=== PATIENT | male | born 1985 | race Caucasian/White ===

== ENCOUNTER 2016-10-18 21:22 | Emergency (ER) | payer MEDICAID | END 2016-10-18 23:15 | disposition home or self-care (01) | LOC: D.ER 21:22 | DX: K08.89 Other specified disorders of teeth and supporting structures (principal); K05.10 Chronic gingivitis, plaque induced; S02.5XXA Fracture of tooth (traumatic), initial encounter for closed fracture; X58.XXXA Exposure to other specified factors, initial encounter; Y93.9 Activity, unspecified; R68.84 Jaw pain ==

== ENCOUNTER 2018-07-05 09:49 | Emergency (ER) | payer OTHER ==
[~2018-07-05] VITALS: Ht 165.1 cm; Wt 54.5 kg
[2018-07-05 09:52] VITALS: Ht 165.1 cm; Wt 54.5 kg
[2018-07-05 10:33] LABS: BASOPHILS 0.3 % (0-2); EOSINOPHILS 1.1 % (0-7); HEMATOCRIT 45.2 % (42.0-54.0); HEMOGLOBIN 16.3 g/dL (13.5-17.5); IMMATURE GRANULOCYTES 0.3 % (0-5); LYMPHOCYTES 11.6 % (15-50); MCH 32.2 pg (26.0-34.0); MCHC 36.1 g/dL (31.0-37.0); MCV 89.3 fL (80.0-100.0); MEAN PLATELET VOLUME 9.7 fL (7.4-10.4); MONOCYTES 5.4 % (2-11); NEUTROPHILS 81.3 % (40-80); RBC 5.06 10x6/uL (4.20-6.10); RDW 13.2 % (11.5-14.5); WBC 11.2 10x3/uL (4.8-10.8)
[2018-07-05] MEDS ORDERED: EFFEXOR75 MG PO (10:37)
[2018-07-05 10:42] LABS: PLATELET COUNT 167 10x3/uL (130-400)
[2018-07-05 10:50] LABS: ALBUMIN 4.2 g/dL (3.4-5.0); ALKALINE PHOSPHATASE 37 U/L (46-116); ALT (SGPT) 24 U/L (10-68); CALC OSMOLALITY 277 mosm/kg (275-300); CARBON DIOXIDE 27.5 mmol/L (21.0-32.0); CHLORIDE - SERUM 105 mmol/L (98-107); CREATININE - SERUM 0.8 mg/dL (0.6-1.3); GLUCOSE 93 mg/dL (74-106); POTASSIUM - SERUM 3.8 mmol/L (3.5-5.1); PROTEIN - SERUM 7.4 g/dL (6.4-8.2); SODIUM 140 mmol/L (136-145); UREA NITROGEN 10 mg/dL (7-18); eGFR NON AFRICAN AMERICAN > 90 mL/min (90-120)
[2018-07-05 10:59] LABS: CKMB 1.3 U/L (0.0-3.6); CREATINE KINASE 201 UL (21-232); MAGNESIUM - SERUM 2.2 mg/dL (1.8-2.4); TROPONIN-I < 0.017 ng/mL (0.000-0.060)
[2018-07-05 11:27] LABS: UDS - AMPHET NEGATIVE QUAL (NEGATIVE); UDS - BARB NEGATIVE QUAL (NEGATIVE); UDS - BENZO NEGATIVE QUAL (NEGATIVE); UDS - COCAINE NEGATIVE QUAL (NEGATIVE); UDS - OPIATE NEGATIVE QUAL (NEGATIVE); UDS - PCP NEGATIVE QUAL (NEGATIVE); UDS - THC POSITIVE QUAL (NEGATIVE)
[2018-07-05 11:38] VITALS: BP 110/62
[2018-07-05 12:20] LABS: APTT 33.2 SECONDS (22.8-39.4); INR 1.09 (0.85-1.17); PROTIME 13.6 SECONDS (11.6-15.0)
== END 2018-07-05 11:40 | disposition home or self-care (01) ==
LOC: D.ER 09:49
PROVIDERS: Emergency Medicine
DX: R07.89 Other chest pain (principal)

== ENCOUNTER 2019-07-11 02:42 | Inpatient (IN) | payer OTHER ==
[~2019-07-11] VITALS: Ht 165.1 cm; Wt 72.7 kg
[2019-07-11] VITALS (12 sets, daily range): BP systolic 96–125; BP diastolic 56–82; Ht 165.1 cm; Wt 72.7 kg
[~2019-07-11 02:42] MED LIST: EFFEXOR75 MG PO
[2019-07-11 03:10] LABS: BASOPHILS 0.2 % (0-2); EOSINOPHILS 0.5 % (0-7); HEMATOCRIT 44.8 % (42.0-54.0); HEMOGLOBIN 15.4 g/dL (13.5-17.5); IMMATURE GRANULOCYTES 0.3 % (0-5); MCH 30.7 pg (26.0-34.0); MCHC 34.4 g/dL (31.0-37.0); MCV 89.4 fL (80.0-100.0); MEAN PLATELET VOLUME 9.5 fL (7.4-10.4); MONOCYTES 5.3 % (2-11); NEUTROPHILS 84.7 % (40-80); RBC 5.01 10x6/uL (4.20-6.10); RDW 12.7 % (11.5-14.5); WBC 14.9 10x3/uL (4.8-10.8)
[2019-07-11 03:23] LABS: PLATELET COUNT 207 10x3/uL (130-400)
[2019-07-11 03:25] LABS: CALC OSMOLALITY 271 mosm/kg (275-300); CALCIUM 9.6 mg/dL (8.5-10.1); CARBON DIOXIDE 21.2 mmol/L (21.0-32.0); CHLORIDE - SERUM 101 mmol/L (98-107); CREATININE - SERUM 0.9 mg/dL (0.6-1.3); GLUCOSE 123 mg/dL (74-106); POTASSIUM - SERUM 3.5 mmol/L (3.5-5.1); SODIUM 136 mmol/L (136-145); UREA NITROGEN 9 mg/dL (7-18); eGFR NON AFRICAN AMERICAN > 90 mL/min (90-120)
[2019-07-11 03:32] LABS: ALBUMIN 4.5 g/dL (3.4-5.0); ALKALINE PHOSPHATASE 47 U/L (30-120); ALT (SGPT) 17 U/L (10-68); BILIRUBIN - TOTAL 1.05 mg/dL (0.2-1.3); PROTEIN - SERUM 7.8 g/dL (6.4-8.2)
--- NOTE | 2019-07-11 03:53 | NUR ---
FARMER AND GRAZIER AT BEDSIDE. EDP AWARE.
[2019-07-11 03:56] LABS: BILIRUBIN NEGATIVE (NEGATIVE); GLUCOSE NEGATIVE (NEGATIVE); KETONE LARGE mg/dL (NEGATIVE); NITRITE NEGATIVE (NEGATIVE); SPECIFIC GRAVITY 1.005 (1.005-1.020); UROBILINOGEN NORMAL (NORMAL)
[2019-07-11 03:58] LABS: WHITE CELLS - URINE 0-5 /hpf (NEGATIVE)
[2019-07-11 03:59] LABS: BACTERIA FEW /hpf (NEGATIVE); EPITHELIAL CELLS 0-5 /hpf (0-5); RED CELLS - URINE 0-5 /hpf (0-5); UDS - AMPHET POSITIVE QUAL (NEGATIVE); UDS - BARB NEGATIVE QUAL (NEGATIVE); UDS - BENZO NEGATIVE QUAL (NEGATIVE); UDS - COCAINE NEGATIVE QUAL (NEGATIVE); UDS - OPIATE NEGATIVE QUAL (NEGATIVE); UDS - PCP NEGATIVE QUAL (NEGATIVE); UDS - THC POSITIVE QUAL (NEGATIVE)
--- NOTE | 2019-07-11 05:21 | NUR ---
PT LEAVING FOR ORDERED CT AT THIS TIME.
[2019-07-11 07:08] LABS: INR 1.06 (0.85-1.17); PROTIME 13.8 SECONDS (11.6-15.0)
--- NOTE | 2019-07-11 08:09 | NUR ---
REPORT CALLED TO ROGER MAGUIRE AT THIS TIME. ALL QUESTIONS ANSWERED.
--- NOTE | 2019-07-11 12:41 | NUR ---
PT RESTING QUIETLY IN BED. RESP EVEN AND UNLABORED. REMAINS NPO FOR UPCOMING PROCEDURE. DENIES FURTHER NEEDS AT THIS TIME. CL WITHIN REACH. ENCOURAGED TO CALL WITH NEEDS.
--- NOTE | 2019-07-11 14:15 | NUR ---
PT TAKEN TO [facility] FOR SURGERY VIA BED
--- NOTE | 2019-07-12 03:14 | NUR ---
AT SHIFT CHANGE PATIENT C/O NAUSEA THAT EVERY TIME HE TAKE A BITE OF FOOD HE FEELS LIKE HE IS GOING TO THROW UP. ZOFRAN PER PRN ORDERS.
[2019-07-12 04:00] VITALS: BP 103/61
[2019-07-12 06:18] LABS: BASOPHILS 0.1 % (0-2); EOSINOPHILS 0.1 % (0-7); HEMATOCRIT 43.2 % (42.0-54.0); HEMOGLOBIN 15.1 g/dL (13.5-17.5); IMMATURE GRANULOCYTES 0.3 % (0-5); LYMPHOCYTES 9.3 % (15-50); MCH 31.5 pg (26.0-34.0); MCV 90.2 fL (80.0-100.0); MEAN PLATELET VOLUME 9.9 fL (7.4-10.4); MONOCYTES 5.9 % (2-11); NEUTROPHILS 84.3 % (40-80); PLATELET COUNT 230 10x3/uL (130-400); RBC 4.79 10x6/uL (4.20-6.10); RDW 12.7 % (11.5-14.5)
[2019-07-12 06:34] LABS: CALC OSMOLALITY 275 mosm/kg (275-300); CARBON DIOXIDE 25.7 mmol/L (21.0-32.0); CHLORIDE - SERUM 103 mmol/L (98-107); CREATININE - SERUM 0.8 mg/dL (0.6-1.3); GLUCOSE 133 mg/dL (74-106); MAGNESIUM - SERUM 2.3 mg/dL (1.8-2.4); PHOSPHOROUS 4.1 mg/dL (2.5-4.9); POTASSIUM - SERUM 4.5 mmol/L (3.5-5.1); SODIUM 137 mmol/L (136-145); UREA NITROGEN 12 mg/dL (7-18); eGFR NON AFRICAN AMERICAN > 90 mL/min (90-120)
--- NOTE | 2019-07-12 07:57 | NUR ---
PT RESTING IN BED WATCHING TV. RESP EVEN AND UNLABORED. PT DENIES PAIN AT THIS TIME. DENIES NAUSEA. IV TO LEFT FOREARM WITH NS @ KVO, SITE WITHOUT REDNESS OR EDEMA. DENIES FURTHER NEEDS AT THIS TIME. CL WITHIN REACH. ENCOURAGED TO CALL WITH NEEDS. CONTINUE POC
--- NOTE | 2019-07-12 09:10 | NUR ---
CALLED TO PT ROOM, PT C/O SEVERE PAIN TO RIGHT LOWER CHEST. PT THRASHING AROUND BED, DIAPHORETIC AND RED. REPORTS PAIN MORE THAN A 10 AT THIS TIME. O2 SATS OBTAINED @ 97% ROOM AIR. HR 110. UNABLE TO OBTAIN BP DUE TO PT MOVEMENTS AND INABILITY TO LAY STILL. DR. ARMSTRONG PAGED AT THIS TIME.
--- NOTE | 2019-07-12 09:15 | NUR ---
SPOKE WITH DR. ARMSTRONG REGARDING PT STATUS. VOICES SURGERY WENT WELL, NO COMPLICATIONS. NEW ORDERS FOR ATIVAN 1MG IV ONE TIME, CBC AND TROPONIN, CTA OF CHEST FOR PE PROTOCOL AND EKG. ORDERS COMPLETED. EKG PLACED TO CHART. 1MG OF ATIVAN ADMINISTERED PER ORDERS. PT REMAINS RESTLESS WITH C/O OF EXTREME PAIN TO RIGHT LOWER CHEST. DR. VARGAS PAGED AT THIS TIME FOR UPDATE.
--- NOTE | 2019-07-12 09:25 | NUR ---
SPOKE WITH DR. VARGAS TO UPDATE ON PT STATUS. HE VOICES THAT HE IS POST OP. EXPLAINED TO DR. VARGAS PT WITH C/O SEVERE PAIN TO RIGHT LOWER CHEST WITH FEELINGS OF INABILITY TO BREATH, PT BEING DIAPHORETIC, AND THRASHING AROUND IN BED. INFORMED HIM OF DR. MATTSON ORDERS. STAFF TOLD THAT TROPONIN WAS COMPLETED WELL CTA OF CHEST ON YESTERDAY AND THEY WERE NEGATIVE, BUT STATES HE WILL SEE PT AT NOON AND SEE RESULTS OF ORDERED TEST.
--- NOTE | 2019-07-12 10:30 | NUR ---
PT RESTING IN BED WITH EYES CLOSED. RESP EVEN AND UNLABORED AT THIS TIME. PT AWAKENED TO ASSESS WELL BEING. PT VOICES FEELING BETTER, REPORTING PAIN 3/10 AT THIS TIME. CL WITHIN REACH.
[2019-07-12] MEDS ORDERED: COLACE100 MG PO (11:00)
[2019-07-12] MEDS ORDERED: HYDROCODON-ACE1 EAC7 PO (11:01)
--- NOTE | 2019-07-12 11:20 | NUR ---
PT RESTING QUIETLY IN BED WITH EYES CLOSED. RESP EVEN AND UNLABORED. CL WITHIN REACH.
--- NOTE | 2019-07-12 11:41 | MORECARE ---
CASE MANAGEMENT DISCHARGE SUMMARY PATIENT: JOSE ALFREDO VIZCARRA UNIT: [id number] ADM DATE: 07/11/19 AGE: 33 : [birth year] SEX: M ROOM/BED: D.2237 AUTHOR: GAY SCHNEIDER PHYSICIAN: REFERRING PHYSICIAN: SOPHIA VARGAS MD DATE OF SERVICE: 07/12/19 Discharge Plan Patient Name: JOSE ALFREDO VIZCARRA Facility: [facility]:[place] : 1985 Planned Disposition: Anticipated Discharge Date: Discharge Date: Expected LOS: Initial Reviewer: [email or web address] Initial Review Date: 07/12/2019 Generated: 07/12/19 12:40 pm Comments DCP- Discharge Planning Updated by [email or web address]: Brittaney Mendoza on 07/12/19 10:[address] Patient Name: JOSE ALFREDO VIZCARRA Admission Status: ER Accout number: [id number] Admission Date: 07-11-2019 : 1985 Admission Diagnosis: Attending: SOPHIA VARGAS Current LOS: 1 Anticipated DC Date: Planned Disposition: Primary Insurance: [employer] MA[employer]ED [employer]ICA[employer] Discharge Planning Comments: CM met with patient at bedside after explaining CM role and obtaining verbal consent. CM discussed availability / needs of home health, REHAB and medical equipment. PATIENT DENIES ANY DISCHARGE NEEDS. PATIENT HAS FAMILY MEMBER THAT CAN PICKUP AT DISCHARGE. Formula Clerk: Brittaney Mendoza DCPIA - Discharge Planning Initial Assessment Updated by [email or web address]: Brittaney Mendoza on 07/12/19 11:35 am * Is the patient Alert and Oriented? Yes * PCP SLAY * Pharmacy [facility] * ADLs Independent * Additional services required to return to the preadmission environment? No * Can the patient safely return to the preadmission environment? Yes * Has this patient been hospitalized within the prior 30 days at any hospital? No Patient Name: JOSE ALFREDO VIZCARRA Page [id number] at 1141 All edits/amendments must be made on the electronic document DICTATION DATE: 07/12/19 1140 HANDSTITCHING MACHINE COLLAR FELLER: RAEGAN 07/12/19 1140 RPT#: [id number] DC DATE: STATUS: ADM IN [facility] [address] [place] [address] END OF REPORT
[2019-07-12 12:00] VITALS: BP 100/63
--- NOTE | 2019-07-13 10:39 | MORECARE ---
CASE MANAGEMENT DISCHARGE SUMMARY PATIENT: JOSE ALFREDO VIZCARRA UNIT: [id number] ADM DATE: 07/11/19 AGE: 33 : 83 SEX: M ROOM/BED: D.2237 AUTHOR: GAY SCHNEIDER PHYSICIAN: REFERRING PHYSICIAN: SOPHIA VARGAS MD DATE OF SERVICE: 07/13/19 Discharge Plan Patient Name: JOSE ALFREDO VIZCARRA Facility: [facility]:[place] : 1985 Planned Disposition: Anticipated Discharge Date: Discharge Date: 07/12/2019 Expected LOS: Initial Reviewer: [email or web address] Initial Review Date: 07/12/2019 Generated: 07/13/19 11:39 am Comments DCP- Discharge Planning Updated by [email or web address]: Brittaney Mendoza on 07/12/19 10:[address] Patient Name: JOSE ALFREDO VIZCARRA Admission Status: ER Accout number: [id number] Admission Date: 07-11-2019 : 1985 Admission Diagnosis: Attending: SOPHIA VARGAS Current LOS: 1 Anticipated DC Date: Planned Disposition: Primary Insurance: [employer] MANAGED MEDICAID Discharge Planning Comments: CM met with patient at bedside after explaining CM role and obtaining verbal consent. CM discussed availability / needs of home health, REHAB and medical equipment. PATIENT DENIES ANY DISCHARGE NEEDS. PATIENT HAS FAMILY MEMBER THAT CAN PICKUP AT DISCHARGE. Migratory Farm Hand: Brittaney Mendoza DCPIA - Discharge Planning Initial Assessment Updated by [email or web address]: Brittaney Mendoza on 07/12/19 11:35 am * Is the patient Alert and Oriented? Yes * PCP SLAY * Pharmacy [facility] * ADLs Independent * Additional services required to return to the preadmission environment? No * Can the patient safely return to the preadmission environment? Yes * Has this patient been hospitalized within the prior 30 days at any hospital? No Last DP export: 07/12/19 10:41 am Patient Name: JOSE ALFREDO VIZCARRA Page [id number] at 1039 All edits/amendments must be made on the electronic document DICTATION DATE: 07/13/19 1039 FORESTRY TECHNICIAN: RAEGAN 07/13/19 1039 RPT#: [id number] DC DATE:07/12/19 STATUS: DIS IN [facility] [address] [place] [address] END OF REPORT
--- NOTE | 2019-07-14 22:55 | OP ---
PATIENT NAME: JOSE ALFREDO VIZCARRA MEDICAL RECORD: [id number] :83 LOCATION:D.MS [id number] ADMISSION DATE:07/11/19 SURGEON: MONICA ARMSTRONG MD DATE OF OPERATION: 07/11/2019 PREOPERATIVE DIAGNOSIS: Acute appendicitis with localized peritonitis. POSTOPERATIVE DIAGNOSIS: Acute appendicitis with localized peritonitis. PROCEDURE: Laparoscopic appendectomy. SURGEON: Monica Armstrong MD COLLECTIONS AND ARCHIVES DIRECTOR: None. BLOOD LOSS: Minimal. ANESTHESIA: General. COMPLICATIONS: None. The risks, possible complications and alternatives to the procedure were explained to the patient. He elects to proceed. The discussion specifically included, but was not limited to, bleeding requiring emergency reoperation, infection and the possibility that the appendix would be normal. OPERATIVE FINDINGS: Acute appendicitis with localized peritonitis. There was no evidence of abscess. No evidence of rupture. No evidence of gangrene. OPERATIVE COURSE: The patient was conveyed to the operating room urgently on 07/11/2019. General anesthesia was induced by the anesthesia staff. A small skin lilian was accomplished in the left upper quadrant. A Veress needle was inserted through the skin lilian into the peritoneal cavity. CO2 insufflation was begun. Once a sufficient pneumoperitoneum had been achieved, a 5-mm trocar was inserted in the left lower quadrant. Under direct internal vision utilizing a television camera, a 12-mm trocar was inserted through an incision at the umbilicus. Another 5-mm trocar was inserted through an incision in the left upper quadrant. During insertion of the Veress needle and all trocars, there appeared to have been no injury to the bowels, intraperitoneal, or retroperitoneal structures. The appendix was mobilized bluntly. A window was created in the mesoappendix. I stapled across the tip of the cecum with an Endo-TRACY type staple utilizing a blue load. I then took down the mesoappendix with the laparoscopic EnSeal device. The appendix was placed within a bag retrieval device and was withdrawn through the umbilical fascial defect. The 12-mm trocar was placed and the abdomen reinsufflated. I irrigated and aspirated in the right side of the abdomen. There was no bleeding even at low pressure of 8. All the trocars were removed and the abdomen desufflated. The umbilical fascia defect was closed with a single horizontal mattress 0 Vicryl suture. The skin at the umbilicus was closed with interrupted 4-0 Vicryl Rapide suture. The other trocar sites were closed with interrupted intracuticular 3-0 Vicryls. Benzoin and Steri-Strips were applied. OPERATIVE REPORT [id number] JOSE ALFREDO VIZCARRA The patient was then extubated and conveyed to post-anesthesia care unit where he was in stable condition. From my standpoint, he can be dismissed home tonight. There are no family members to talk to this evening. I would like to see him in my office in 2-3 weeks. There is a prescription for [place] as well as Colace on the chart. TRANSINT:[id number] Voice Confirmation ID: [id number] DOCUMENT ID: [id number] MONICA ARMSTRONG MD at 9882 CC: SOPHIA VARGAS MD [id number] DICTATION DATE: 07/11/191721 PAIRING MACHINE OPERATOR: 07/11/191913 DIS IN 07/12/19 [facility] [address] [place] [address]
== END 2019-07-12 14:40 | disposition home or self-care (01) | DRG 343 ==
LOC: D.ER 02:42 → D.MS 07:28
PROVIDERS: Family Medicine; Surgery; ADMIT Family Medicine; ATTEND Family Medicine
PROC: 0DTJ4ZZ Resection of Appendix, Percutaneous Endoscopic Approach (ICD-10-PCS; principal; 2019-07-11 13:00)
DX: K35.30 Acute appendicitis with localized peritonitis, without perforation or gangrene (principal); Z72.0 Tobacco use